=== PATIENT | male | born 1975 | race Caucasian/White ===

== ENCOUNTER → 2023-02-06 09:57 | Outpatient (CLI) | payer OTHER, SELFPAY ==
[2023-02-06 11:06] LABS: Hematocrit 41.6 % (41-53); Hemoglobin 14.1 g/dL (13.5-17.5); Mean Corpuscular HGB Conc 33.9 % (30-36); Mean Corpuscular Hemoglobin 31.7 PG (26-34); Mean Corpuscular Volume 93.5 fL (80-100); Platelet Count 250 X10^3/uL (150-400); Red Blood Cell Count 4.45 X10^6/uL (4.5-5.9); Red Cell Distribution Width 13.3 % (11.6-14.8); White Blood Cell Count 5.5 X10^3/uL (4.5-11.0)
[2023-02-06 11:39] LABS: Alanine Aminotransferase 43 IU/L (<50); Albumin 4.4 g/dL (3.5-5.0); Albumin Globulin Ratio 1.6 (1.0-2.8); Alkaline Phosphatase 51 U/L (38-126); Aspartate Aminotransferase 34 IU/L (17-59); BUN Creatinine Ratio 16.3 (6-22); Bilirubin Total 0.5 mg/dL (0.2-1.3); Blood Urea Nitrogen 13 mg/dL (9-20); Carbon Dioxide 28 mmol/L (22-32); Chloride 103 mmol/L (98-107); Cholesterol 195 mg/dL (140-199); Estimated Glomerular Filt Rate > 60 mL/min (>60); Globulin 2.8 g/dL (1.7-4.1); Glucose 95 mg/dL (70-100); HDL Cholesterol 75 mg/dL (40-60); HEMOLYSIS < 15 (0-50); LDL Cholesterol Calculated 106 mg/dL (<100); Sodium 137 mmol/L (137-145); Total Protein 7.2 g/dL (6.3-8.2); Triglycerides 72 mg/dL (35-150)
[2023-02-06 12:06] LABS: Prostate Specific Antigen Scrn 0.469 ng/mL (0.1-4.0)
[2023-02-06 12:10] LABS: TSH w/ Reflex to FT4 0.77 uIU/mL (0.47-4.68)
== END ==
PROVIDERS: PCP Internal Medicine; Referring Provider Internal Medicine; Visit Provider Internal Medicine
DX: Z00.00 Encounter for general adult medical examination without abnormal findings (principal); K51.90 Ulcerative colitis, unspecified, without complications; Z90.49 Acquired absence of other specified parts of digestive tract; Z12.5 Encounter for screening for malignant neoplasm of prostate
CPT/HCPCS: 36415; 80053; 80061; 84443; 85027; G0103

== ENCOUNTER 2023-03-05 11:47 | Day surgery (SDC) | payer OTHER, SELFPAY ==
[2023-02-26 15:20] VITALS: BMI 24.5
--- NOTE | 2023-03-05 | PATH_ITS ---
[facility] Accession Number: [id number] No. of containers..01 Tissue . 01 Material submitted: . hip - RIGHT HIP . 01 Diagnosis: Right Hip, Excisions: Fragments of angiolipoma. MRV 03/08/2023 1340 Local . 01 Electronically signed: . Cabrera Hernandez MD, Dermatopathologist NPI- [id number] . 01 Gross description: . The specimen is received in formalin labeled with the patient's name, , and right hip soft tissue mass, and consists of two yellow, lobulated soft tissue fragments. The first measures 6.4 x 4.2 x 3.3 cm and is inked blue. The second measures 3.1 x 2.9 x 1.6 cm and is inked green. Both fragments are serially sectioned to reveal a yellow-pink, soft, unremarkable cut surface. Afternoon Babysitter sections are submitted in cassettes A1-A3. ([id number]) /[facility] 03/06/2023 1020 Local . 01 Pathologist provided ICD-10: D17.9 . 01 CPT . 122912 Performed at: 01 [facility] [address] [place] [address], [place], [place] [id number] MD Casper Romeo MD Phone: [phone]
[2023-03-05 12:13] VITALS: BMI 24.5
[2023-03-05 12:36] VITALS: BP 113/74; PULSE 65; RESP 17; TEMP 35.9; O2SAT 100
[2023-03-05] MEDS: LACTATED RINGERS 1,000 ML 42 ML IV (12:44)
--- NOTE | 2023-03-05 13:48 | PM.PREOP ---
Pre-operative Note COVID-19 COVID-19 status: Not tested Interval Note History & Physical reviewed/Exam performed by Physician: Yes Changes to H&P: No ASA Class (for procedural sedation): I
[2023-03-05] MEDS: CEFAZOLIN 2 GM/100 ML PREMIX 100 ML IV (14:28)
[2023-03-05] MEDS: LIDOCAINE 1% 20 ML, EPINEPHrine 0.2 MG INJ (15:05)
--- NOTE | 2023-03-05 15:06 | SUR.OPER ---
Lateral on a palmer bag, head on pillow, gel axillary roll in place, bottom leg bent with gel pad under knee to foot, upper leg straight and supported with pillows. Upper arm supported by pillows and secured over bottom arm to padded arm board. Safety belt at hip, tape over blanket lower legs.
--- NOTE | 2023-03-05 15:39 | P.OP_ITS ---
Operative Date/Time/Diagnoses Date of procedure: 03/05/23 Time of procedure: 15:39 Pre-op diagnosis: Multiple right flank lipomas Post-op diagnosis: same Procedure & Clinicians Procedure: Excisional biopsy of multiple right flank lipomas Same procedure as scheduled: Yes Surgeon: Quan Fernandez Lab Support Service Tech: Brando Black Anesthesia Type: General Operative Notes Procedure in detail: The patient was marked in the preoperative holding area. The dominant lipoma was marked with a 1. And subsequent lipomas were numbered in decreasing order of irritability. The patient was brought to the operating room, general anesthesia was induced and the patient was positioned in the left lateral decubitus position with the right side up. A preoperative antibiotic was administered. We started the largest lipoma over the right hip. We incised through the skin and a thin layer of subcutaneous adipose tissue to get to the lipoma. It was easily dissected free from the surrounding subcutaneous adipose tissue. A few bleeders were cauterized. This lipoma was about 7 cm by 5 cm x 4 cm. A second smaller lipoma was removed through the same incision from just inferior to the predominant mass. The second lipoma was about 3 cm in diameter. We then proceeded to remove 7 other lipomas ranging in size from 2-4 cm in diameter through 4 incisions. All the incisions were closed with interrupted 3-0 Vicryl dermal sutures followed by a running 4-0 Monocryl subcuticular stitch. Steri-Strips and dressings were applied over each incision. EBL: 20 mL Specimens: 9 lipomas, the largest of which was 7 cm Post-operative Condition: stable Disposition: PACU
[2023-03-05 15:45] VITALS: BP 108/74; PULSE 101; RESP 18; TEMP 36.7; O2SAT 94
[2023-03-05 15:52] VITALS: BP 120/77; PULSE 85; RESP 9; O2SAT 98
[2023-03-05 15:56] VITALS: BP 112/74; PULSE 90; RESP 14; O2SAT 99
[2023-03-05] MEDS: ACETAMINOPHEN 325 MG TABLET 975 MG PO (15:58)
[2023-03-05 16:03] VITALS: BP 114/77; PULSE 80; RESP 10; O2SAT 97
[2023-03-05 16:05] VITALS: BP 114/68; PULSE 79; RESP 11; TEMP 36.4; O2SAT 96
== END 2023-03-05 17:25 | disposition home or self-care (01) ==
PROVIDERS: PCP Internal Medicine; Referring Provider Surgery; Visit Provider Surgery
PROC: (CPT 21931; principal; 2023-03-05 13:15)
DX: D17.1 Benign lipomatous neoplasm of skin and subcutaneous tissue of trunk (principal); R10.819 Abdominal tenderness, unspecified site
CPT/HCPCS: 21931 ×2; 21930 ×7; J0171; J0690; J1100; J2250; J2405; J2704; J3010

== ENCOUNTER → 2024-02-10 08:40 | Outpatient (CLI) | payer OTHER, SELFPAY ==
[2024-02-10 10:28] LABS: Hematocrit 39.4 % (41-53); Hemoglobin 13.3 g/dL (13.5-17.5); Mean Corpuscular HGB Conc 33.8 % (30-36); Mean Corpuscular Volume 94.6 fL (80-100); Platelet Count 240 X10^3/uL (150-400); Red Blood Cell Count 4.16 X10^6/uL (4.5-5.9); Red Cell Distribution Width 13.5 % (11.6-14.8); White Blood Cell Count 5.1 X10^3/uL (4.5-11.0)
[2024-02-10 10:42] LABS: Alanine Aminotransferase 28 IU/L (<50); Albumin 4.3 g/dL (3.5-5.0); Alkaline Phosphatase 46 U/L (38-126); Aspartate Aminotransferase 46 IU/L (17-59); BUN Creatinine Ratio 22.7 (6-22); Bilirubin Total 0.7 mg/dL (0.2-1.3); Blood Urea Nitrogen 17 mg/dL (9-20); Carbon Dioxide 29 mmol/L (22-32); Chloride 104 mmol/L (98-107); Cholesterol 180 mg/dL (140-199); Estimated Glomerular Filt Rate > 60 mL/min (>60); Globulin 2.2 g/dL (1.7-4.1); Glucose 95 mg/dL (70-100); HDL Cholesterol 88 mg/dL (40-60); HEMOLYSIS < 15 (0-50); LDL Cholesterol Calculated 78 mg/dL (<100); Sodium 139 mmol/L (137-145); Total Protein 6.5 g/dL (6.3-8.2); Triglycerides 68 mg/dL (35-150)
[2024-02-10 11:12] LABS: Prostate Specific Antigen Scrn 0.681 ng/mL (0.1-4.0)
[2024-02-10 11:15] LABS: Testosterone 277 ng/dL (71.8-623)
== END ==
PROVIDERS: PCP Internal Medicine; Referring Provider Internal Medicine; Visit Provider Internal Medicine
DX: Z00.00 Encounter for general adult medical examination without abnormal findings (principal); Z12.5 Encounter for screening for malignant neoplasm of prostate; R79.89 Other specified abnormal findings of blood chemistry; K51.90 Ulcerative colitis, unspecified, without complications
CPT/HCPCS: 36415; 80053; 80061; 84403; 85027; G0103

== ENCOUNTER → 2024-04-09 09:37 | Outpatient (CLI) | payer OTHER, SELFPAY ==
[2024-04-09 16:57] LABS: Rubella Antibody IgG 17.8 IU/mL (>15)
[2024-04-10 10:36] LABS: Rubeola Measles IgG < 13.5 AU/mL (Immune >16.4); Var-Zoster Immunity Screen 1471 index (Immune >165)
== END ==
PROVIDERS: PCP Internal Medicine; Referring Provider Internal Medicine; Visit Provider Internal Medicine
DX: Z02.1 Encounter for pre-employment examination (principal)
CPT/HCPCS: 36415; 86707; 86735; 86762; 86765; 86787

== ENCOUNTER → 2025-02-16 08:39 | Outpatient (CLI) | payer OTHER, SELFPAY ==
[2025-02-16 09:47] LABS: Hemoglobin 13.8 g/dL (13.5-17.5); Mean Corpuscular HGB Conc 33.6 % (30-36); Mean Corpuscular Hemoglobin 31.5 PG (26-34); Mean Corpuscular Volume 93.8 fL (80-100); Platelet Count 232 X10^3/uL (150-400); Red Blood Cell Count 4.37 X10^6/uL (4.5-5.9); Red Cell Distribution Width 13.3 % (11.6-14.8); White Blood Cell Count 4.9 X10^3/uL (4.5-11.0)
[2025-02-16 10:23] LABS: Alanine Aminotransferase 35 IU/L (<50); Albumin Globulin Ratio 1.8 (1.0-2.8); Alkaline Phosphatase 51 U/L (38-126); Aspartate Aminotransferase 45 IU/L (17-59); BUN Creatinine Ratio 17.3 (6-22); Bilirubin Total 0.4 mg/dL (0.2-1.3); Blood Urea Nitrogen 18 mg/dL (9-20); Calcium 8.9 mg/dL (8.4-10.2); Carbon Dioxide 30 mmol/L (22-32); Chloride 103 mmol/L (98-107); Cholesterol 206 mg/dL (140-199); Estimated Glomerular Filt Rate > 60 mL/min (>60); Globulin 2.2 g/dL (1.7-4.1); Glucose 84 mg/dL (70-99); HDL Cholesterol 72 mg/dL (40-60); HEMOLYSIS < 15 (0-50); LDL Cholesterol Calculated 110 mg/dL (<100); Potassium 4.1 mmol/L (3.4-5.1); Sodium 137 mmol/L (137-145); Total Protein 6.2 g/dL (6.3-8.2); Triglycerides 120 mg/dL (35-150)
[2025-02-16 10:53] LABS: Prostate Specific Antigen Scrn 0.613 ng/mL (0.1-4.0)
== END ==
PROVIDERS: PCP Internal Medicine; Referring Provider Internal Medicine; Visit Provider Internal Medicine
DX: Z00.00 Encounter for general adult medical examination without abnormal findings (principal); K51.90 Ulcerative colitis, unspecified, without complications; Z12.5 Encounter for screening for malignant neoplasm of prostate
CPT/HCPCS: 36415; 80053; 80061; 85027; G0103

== ENCOUNTER 2025-07-13 06:31 | Day surgery (SDC) | payer OTHER, SELFPAY ==
[2025-07-02 10:30] VITALS: BMI 27.4
[2025-07-13] VITALS (7 sets, daily range): BP systolic 119–146; BP diastolic 69–85; PULSE 78–100; RESP 13–29; TEMP 36.6; O2SAT 97–99
--- NOTE | 2025-07-13 | PATH_ITS ---
[facility] Accession Number: [id number] No. of containers..05 Tissue . 01 Material submitted: . PART A: arm - LEFT ARM LIPOMAS PART B: arm - RIGHT ARM LIPOMAS PART C: leg - LEFT LEG LIPOMAS PART D: leg - RIGHT LEG LIPOMAS PART E: arm - LEFT ARM OLECRANON BURSA . 01 Diagnosis: A-D. SOFT TISSUE, BILATERAL ARMS AND BILATERAL LEGS, EXCISIONS: Angiolipomas. . E. SOFT TISSUE, LEFT ARM OLECRANON BURSA, EXCISION: Fibromembranous cyst-like tissue with associated fibrosis and reactive vascular proliferation, compatible with previously inflamed bursa. No malignancy is identified. [facility] 07/26/2025 1711 Local . 01 Electronically signed: . Mychal Jones MD, Dermatopathologist NPI- [id number] . 01 Gross description: . A. Received in formalin labeled with two patient identifiers and 1. Left arm lipomas, and consists of three yellow, encapsulated, fatty masses ranging from 1.3 x 0.8 x 0.8 cm up to 2.0 x 1.4 x 0.8 cm. The three specimens are differentially inked, and serially sectioned to show a yellow, lobulated, homegenous cut surface without areas of cystic change or necrosis. Processing Associate sections of each fatty mass are submitted in cassettes A1-A2. B. Received in formalin labeled with two patient identifiers and right arm, and consists of three yellow, lobulated, encapsulated, fatty masses ranging from 1.1 x 1.0 x 0.7 cm up to 2.2 x 1.1 x 0.8 cm. The specimens are differentially inked, and serially sectioned to show a yellow, lobulated, homogenous cut surface without areas of cystic change or necrosis. Processing Associate sections of each fatty mass are submitted in cassettes B1-B2. C. Received in formalin labeled with two patient identifiers and 3. Left leg lipomas, and consists of 12 yellow, lobulated, encapsulated, fatty masses ranging from 1.0 x 0.8 x 0.6 cm up to 5.0 x 4.0 x 2.1 cm. The specimens are inked, and serially sectioned to show a yellow, lobulated, homogenous cut surface without areas of cystic change or necrosis. Processing Associate sections are submitted in cassettes C1-C4 (four sections in each cassette). D. Received in formalin labeled with two patient identifiers and right leg lipomas, and consists of seven yellow, lobulated, encapsulated, fatty masses ranging from 1.1 x 1.0 x 0.8 cm up to 4.1 x 2.5 x 1.8 cm (aggregating 8.0 x 4.5 x 2.0 cm). The specimens are inked and serially sectioned to show a yellow, lobulated, homgenous cut surface without areas of cystic change or necrosis. Processing Associate sections from each nodule are submitted in cassettes D1-D4 (three sections in each cassette). E. Received in formalin labeled with two patient identifiers and 5. Left arm olecranon bursa, and consists of a 3.0 x 2.1 x 0.9 cm aggregate of guillen-white, smooth, glistening, fibromembranous cystic tissue. The external surface is smooth, white, glistening, and is inked. The specimen is serially sectioned to show a white homogenous cut surface with a cyst wall averaging 0.1 cm in thickness with a smooth white, wrinkled, shiny inner lining. Processing Associate sections are submitted in cassette E1. ([id number]) /[facility] 07/26/[address] [place] [address] . 01 Pathologist provided ICD-10: D17.9, M71.50 . 01 CPT . 510511, 660147, 636345, 769168, 478817 Performed at: [address] [address], [place], [place] [id number] MD Casper Romeo MD Phone: [phone]
--- NOTE | 2025-07-13 06:09 | PM.PREOP ---
Pre-operative Note Interval Note History & Physical reviewed/Exam performed by Physician: Yes Changes to H&P: No ASA Class (for procedural sedation): I
[2025-07-13] MEDS: LACTATED RINGERS 1,000 ML 42 ML IV ×2 (07:26→08:39)
--- NOTE | 2025-07-13 08:08 | SUR.OPER ---
Supine on padded OR bed, head on pillow, arms secured on padded arm boards at <90 degrees abduction, legs uncrossed, safety belt at waist.
[2025-07-13] MEDS: BUPivacaine 0.25% W/ EPI (PF) 30 ML VIAL 60 ML INJ (08:16)
--- NOTE | 2025-07-13 09:16 | PM.OP.1 ---
Operative Date/Time/Diagnoses Date of procedure: 07/13/25 Time of procedure: 09:16 Pre-op diagnosis: Multiple lipomas arms and legs Post-op diagnosis: other (Same, left elbow was an olecranon bursa) Procedure & Clinicians Procedure: 1. Excision multiple lipomas x 22, bilateral forearms and thighs 2. Excision left olecranon bursal sac by Dr. Bailee Stevenson Same procedure(s) as scheduled: Yes Indications: 50yo M, h/o multiple lipomas, had additional painful lipomas that he desired to be excised. Surgeon: Ricci Patel Assisted?: Yes Etcher Machine: Brando Black Anesthesia Type: General Operative Notes Findings: Multiple benign appearing lipomas. Left elbow was olecranon bursa. Closure Type: primary Specimen(s): other (Lipomas and bursal sac) Applied: none Estimated Blood Loss (mL): 30 Blood products transfused: none Procedure in detail: After informed consent and satisfactory general endotracheal anesthesia, the arms and legs were prepped and draped in the usual sterile manner. Surgical time-out was performed with all team members in agreement. Each lipoma was treated in an identical manner. We infiltrated the skin overlying the lipoma with 0.25% Marcaine with epinephrine. The skin incision was made with a 15 blade. The lipoma was expressed. Each lipoma was unilocular and well-circumscribed. All lipomas were in subcutaneous location. The skin incisions were closed using 4-0 Monocryl in a subcuticular manner. Steri-Strips were applied as a final dressing. The estimated blood loss was approximately 30 cc. The left elbow excision expressed clear fluid and was consistent with an olecranon bursa. Dr. Bailee Stevenson was kind to scrub and excise the bursal sac. This was sharply excised with Metzenbaum scissors taking care to preserve the muscle tendon insertions. This was sent for permanent pathology. The bursal fluid was serous and clear. The bursal sac measured 8cm. The joint space was palpably normal. This wound was closed in 2 layers using 3-0 Vicryl interrupted for the subcutaneous layer and 4-0 Monocryl subcuticular on the skin. Steri-Strips were applied. The left elbow had the identical palpable characteristic of his other lipomas which was contributory. The instrument, sponge and needle counts were all correct x2. The patient tolerated the procedure well and was extubated in the operating room and transported to the recovery area in stable condition. The lipoma sizes were as follows: Left forearm: 1. 1.5cm 2. 2cm 3. 1cm Right forearm: 4. 2.5cm 5. 2cm Left thigh: 6. 3cm 7. 4cm 8. 1cm 9. 4cm 10. 2.5cm 11. 5cm 12. 2.5cm 13. 2cm 14. 5cm 15. 4.5cm 16. 3.5cm Right thigh: 17. 2.5cm 18. 3cm 19. 2cm 20. 4.5cm 21. 2cm 22. 3.5cm Complications: none Post-operative Condition: stable Disposition: PACU Plan for aftercare: PACU then home
[2025-07-13] MEDS: ONDANSETRON 4 MG/2 ML INJ IV (09:43)
[2025-07-13] MEDS: KETOROLAC 30 MG/ML VIAL 15 MG IV (09:43)
[2025-07-13] MEDS: hydrOXYzine 50 MG/ML INJ 25 MG IM (09:44)
== END 2025-07-13 11:00 | disposition home or self-care (01) ==
PROVIDERS: PCP Internal Medicine; Referring Provider Surgery; Visit Provider Surgery
PROC: (CPT 25075; principal; 2025-07-13 07:45)
DX: D17.22 Benign lipomatous neoplasm of skin and subcutaneous tissue of left arm (principal); D17.21 Benign lipomatous neoplasm of skin and subcutaneous tissue of right arm; D17.24 Benign lipomatous neoplasm of skin and subcutaneous tissue of left leg; D17.23 Benign lipomatous neoplasm of skin and subcutaneous tissue of right leg; M79.652 Pain in left thigh; M79.651 Pain in right thigh; M79.632 Pain in left forearm; M79.631 Pain in right forearm
CPT/HCPCS: 24105; 25075 ×3; 27327 ×4; 27337 ×7; J1100; J1171; J1885; J2250; J2405; J2704; J3010; J3410; J3490; J7120

== ENCOUNTER → 2025-08-16 15:02 | Outpatient (CLI) | payer OTHER, SELFPAY ==
[2025-08-16 15:16] LABS: Hematocrit 38.4 % (41-53); Hemoglobin 13.0 g/dL (13.5-17.5); Mean Corpuscular HGB Conc 33.9 % (30-36); Mean Corpuscular Hemoglobin 31.1 PG (26-34); Mean Corpuscular Volume 91.6 fL (80-100); Platelet Count 246 X10^3/uL (150-400)
[2025-08-16 15:46] LABS: HEMOLYSIS < 15 (0-50); Iron 88 ug/dL (49-181)
[2025-08-16 15:57] LABS: Percent Iron Saturation 27 % (20-50); Total Iron Binding Capacity 325 ug/dL (261-462); Transferrin 276 mg/dL (206-381)
[2025-08-16 16:20] LABS: Ferritin 25 ng/mL (18-464)
== END ==
PROVIDERS: PCP Internal Medicine; Referring Provider Internal Medicine; Visit Provider Internal Medicine
DX: E61.1 Iron deficiency (principal)
CPT/HCPCS: 36415; 82728; 83540; 83550; 85027